=== PATIENT | male | born 1990 | race Caucasian/White ===

== ENCOUNTER 2017-12-14 17:12 | Emergency (ER) | payer OTHER ==
[2017-12-14 17:12] VITALS: BMI 27.3
[2017-12-14 17:27] VITALS: BP 129/83; PULSE 85; RESP 16; O2SAT 98
--- NOTE | 2017-12-14 18:15 | ED PDOC ---
HPI: General Adult Time Seen by Provider: 12/14/17 18:13 Chief Complaint (Nursing): Abnormal Skin Integrity Chief Complaint (Provider): nasal pain History Per: Patient (27 y/o male here with pimple on nose that has gradually become more inflamed. 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 Denies any fevers/chills. Notes additional complaint of frothy urine. Denies any pain with urinary effort.) Past Medical History Reviewed: Historical Data, Nursing Documentation, Vital Signs Vital Signs: Last Vital Signs Temp 98.5 F 12/14/17 17:23 Pulse 85 12/14/17 17:23 Resp 16 12/14/17 17:23 BP 129/83 12/14/17 17:23 Pulse Ox 98 12/14/17 18:15 - Medical History PMH: Denies: Deep Vein Thrombosis, Chronic Kidney Disease - Surgical History Surgical History: Denies: Pacemaker - Family History Family History: States: Unknown Family Hx - Immunization History Hx Tetanus Toxoid Vaccination: No Hx Influenza Vaccination: No Hx Pneumococcal Vaccination: No - Home Medications Home Medications: Ambulatory Orders Medication Instructions Recorded Telavancin Hydrochloride [Vibativ] 750 mg IVPB Q24H vial 09/30/17 Cephalexin 1 tab PO TID 11/05/17 Clindamycin [Cleocin] 300 mg PO Q6 #28 cap 12/14/17 - Allergies Allergies/Adverse Reactions: Allergies Allergy/AdvReac Type Severity Reaction Status Date / Time No Known Allergies Allergy Verified 11/05/17 16:40 Review of Systems ROS Statement: Except As Marked, All Systems Reviewed And Found Negative Physical Exam - Reviewed Nursing Documentation Reviewed: Yes Vital Signs Reviewed: Yes - Physical Exam Appears: Positive for: Well, Non-toxic, No Acute Distress Head Exam: Positive for: ATRAUMATIC, NORMAL INSPECTION, NORMOCEPHALIC Skin: Positive for: Normal Color, Warm, DRY Eye Exam: Positive for: EOMI, Normal appearance, PERRL ENT: Negative for: Normal ENT Inspection (swelling medial aspect of nasal septum with prululent discharge expressed. mild erythema noted tip of nose.) Neck: Positive for: Normal, Painless ROM Cardiovascular/Chest: Positive for: Regular Rate, Rhythm Respiratory: Positive for: CNT, Normal Breath Sounds Gastrointestinal/Abdominal: Positive for: Normal Exam, Soft Back: Positive for: Normal Inspection Extremity: Positive for: Normal ROM Neurologic/Psych: Positive for: Alert, Oriented - Laboratory Results Urine dip results: Negative for: Leukocyte Esterase, Blood, Nitrate, Ketones, Glucose - ECG O2 Sat by Pulse Oximetry: 98 - Progress ED Course And Treament: WOUND CX SENT Disposition - Clinical Impression Clinical Impression: Abscess - Patient ED Disposition Is Patient to be Admitted: No - Disposition Disposition: Routine/Home Disposition Time: 18:46 Condition: FAIR Additional Instructions: RETURN IN 2 DAYS TO ED FOR RE-EVALUATION. Prescriptions: Clindamycin [Cleocin] 300 mg PO Q6 #28 cap Instructions: Skin Abscess Forms: [employer] ([place])
[2017-12-14 19:10] VITALS: TEMP 98.9
== END 2017-12-14 19:10 | disposition home or self-care (01) ==
LOC: H.ER 17:12
DX: J34.0 Abscess, furuncle and carbuncle of nose (principal); J32.9 Chronic sinusitis, unspecified; B95.62 Methicillin resistant Staphylococcus aureus infection as the cause of diseases classified elsewhere

== ENCOUNTER 2017-12-16 15:29 | Emergency (ER) | payer OTHER ==
[2017-12-16 15:29] VITALS: BMI 27.3
[2017-12-16 15:44] VITALS: BP 129/74; PULSE 82; RESP 18; TEMP 98; O2SAT 100
--- NOTE | 2017-12-16 16:12 | ED PDOC ---
HPI: Wound Care - HPI Time Seen by Provider: 12/16/17 16:00 Chief Complaint (Nursing): Wound Check Chief Complaint (Provider): Wound check History Per: Patient Current Symptoms Are (Timing): Still Present Additional Complaint(s): 27 year old male presented to ED for a wound check. Patient was seen 2 days ago for a nasal abscess and notes prior purulent discharge. He has applied clindamycin and has noticed improvements in swelling and redness. Patient states he has an appointment with the wound care clinic on for an evaluation of a leg wound and will also discuss abscess. PCP: none provided Past Medical History Reviewed: Historical Data, Nursing Documentation, Vital Signs Vital Signs: Last Vital Signs Temp 98.0 F 12/16/17 15:42 Pulse 82 12/16/17 15:42 Resp 18 12/16/17 15:42 BP 129/74 12/16/17 15:42 Pulse Ox 100 12/16/17 15:42 - Medical History PMH: No Chronic Diseases Denies: Deep Vein Thrombosis, Chronic Kidney Disease - Surgical History Surgical History: No Surg Hx Denies: Pacemaker - Family History Family History: States: Unknown Family Hx - Social History Current smoker - smoking cessation education provided: Yes (<10 cigarettes) Alcohol: Social Drugs: Denies - Immunization History Hx Tetanus Toxoid Vaccination: No Hx Influenza Vaccination: No Hx Pneumococcal Vaccination: No - Home Medications Home Medications: Ambulatory Orders Medication Instructions Recorded Telavancin Hydrochloride [Vibativ] 750 mg IVPB Q24H vial 09/30/17 Cephalexin 1 tab PO TID 11/05/17 Clindamycin [Cleocin] 300 mg PO Q6 #28 cap 12/14/17 - Allergies Allergies/Adverse Reactions: Allergies Allergy/AdvReac Type Severity Reaction Status Date / Time No Known Allergies Allergy Verified 11/05/17 16:40 Review of Systems ROS Statement: Except As Marked, All Systems Reviewed And Found Negative Eyes: Positive for: Other (Purulent discharge from nose) Physical Exam - Reviewed Nursing Documentation Reviewed: Yes Vital Signs Reviewed: Yes - Physical Exam Appears: Positive for: Non-toxic, No Acute Distress Head Exam: Positive for: ATRAUMATIC, NORMAL INSPECTION, NORMOCEPHALIC Skin: Positive for: Normal Color, Warm, Dry Eye Exam: Positive for: Normal appearance Neck: Positive for: Normal, Painless ROM Extremity: Positive for: Normal ROM Neurologic/Psych: Positive for: Alert, Oriented Comments: NOSE: Improved swelling and redness noted of nose; still purulent discharge present from abscess in medial distal aspect of anterior nare - ECG O2 Sat by Pulse Oximetry: 100 (RA) Pulse Ox Interpretation: Normal Medical Decision Making Medical Decision Making: Initial impression: wound check Initial plan: Purulent discharge noted from abscess in medial distal aspect of anterior nare. Patient is stable for discharge. Scribe Attestation: Documented by José Miguel French acting as a scribe for Herbert RAMIRES. Provider Scribe Attestation: All medical record entries made by the Scribe were at my direction and personally dictated by me. I have reviewed the chart and agree that the record accurately reflects my personal performance of the history, physical exam, medical decision making, and the department course for this patient. I have also personally directed, reviewed, and agree with the discharge instructions and disposition. Disposition - Clinical Impression Clinical Impression: Encounter for wound re-check - Patient ED Disposition Is Patient to be Admitted: No - Disposition Referrals: Vin Stinson MD [Staff Provider] - Disposition: Routine/Home Disposition Time: 16:14 Condition: GOOD Additional Instructions: F/U WITH DR. CRISTOFER MARTI FOR RE-EVALUATION Instructions: Skin Abscess Forms: [employer] (Sudanese)
== END 2017-12-16 16:15 | disposition home or self-care (01) ==
LOC: H.ER 15:29
DX: Z48.00 Encounter for change or removal of nonsurgical wound dressing (principal)